=== PATIENT | female | born 1960 | race Two or more races ===

== ENCOUNTER 2018-09-25 20:58 | Emergency (ER) | payer MEDICAID ==
[~2018-09-25] VITALS: Ht 157.5 cm; Wt 62.6 kg
[2018-09-25] MEDS ORDERED: KETOROLAC TROMETHAMINE 30 MG INJ ONE (22:12)
[2018-09-25] MEDS ORDERED: KETOROLAC TROMETHAMINE 30 MG INJ IM ONE (22:15)
--- NOTE | 2018-09-25 22:26 | NUR ---
Patient discharged to home in stable conditon. Written and verbal after care instructions given. Patient verbalizes understanding of instructions. Pt ambulated out of ER in stable gait with family member. All belongings w pt. VSS. NAD noted.
[2018-09-25 22:30] VITALS: BP 121/76
== END 2018-09-25 22:30 | disposition home or self-care (01) ==
LOC: ER 21:02
DX: B34.9 Viral infection, unspecified (principal); R11.0 Nausea; R51 Headache
CPT/HCPCS: 96372; 99283; J1885; A4663